=== PATIENT | female | born 1975 | race African-American/Black ===

== ENCOUNTER 2017-04-02 08:13 | Emergency (ER) | payer OTHER ==
[2017-04-02] MEDS ORDERED: SULFAMETHOXAZOLE/TRIMETHOPRIM 800-160 MG TABLET PO ONE (09:09)
--- NOTE | 2017-04-02 09:09 | ER Document Report ---
HPI - HPI Patient complains to provider of: red area anterior left thight Onset: Yesterday Onset/Duration: Gradual Pain Level: 1 Context: 42 yo non diabetic female with red area that lo, itches and hurts since yesterday morning. Worse today. No hx of MRSA. No fever. Associated Symptoms: None Exacerbated by: Denies Relieved by: Denies - ROS ROS below otherwise negative: Yes Systems Reviewed and Negative: Yes All other systems reviewed and negative - REPRODUCTIVE Reproductive: DENIES: : Past Medical History - General Information source: Patient - Social History Smoking Status: Current Every Day Smoker Chew tobacco use (# tins/day): No Frequency of alcohol use: None Drug Abuse: None Lives with: Family Family History: Malignancy Patient has suicidal ideation: No Patient has homicidal ideation: No - Past Medical History Cardiac Medical History: Reports: Hx Hypertension Pulmonary Medical History: Reports: Hx Asthma, Hx Pneumonia Neurological Medical History: Reports: Hx Migraine Renal/ Medical History: Reports: Hx Ectopic - Right. Denies: Hx Peritoneal Dialysis Malignancy Medical History: Reports: Hx Lymphoma - hodgkins lymphoma in remission since June 2015 Musculoskeltal Medical History: Reports Hx Musculoskeletal Deformity, Reports Hx Musculoskeletal Trauma Psychiatric Medical History: Reports: Hx Anxiety, Hx Depression Traumatic Medical History: Reports: Hx Fractures - right hand arm fingers, left lower leg Past Surgical History: Reports: Hx Section, Hx Gynecologic Surgery - ectopic with right tube and ovary removed, Hx Orthopedic Surgery - ganglion cyst removed right hand, Hx Umbilical Hernia, Hx Vascular Surgery - Port inserted and removed - Immunizations Immunizations up to date: Yes Hx Diphtheria, Pertussis, Tetanus Vaccination: Yes Vertical Provider Document - CONSTITUTIONAL Agree With Documented VS: Yes Exam Limitations: No Limitations General Appearance: No Apparent Distress - INFECTION CONTROL TRAVEL OUTSIDE OF THE [place] IN LAST 30 DAYS: No - HEENT HEENT: Normocephalic - NECK Neck: Supple - RESPIRATORY O2 Sat by Pulse Oximetry: 98 - MUSCULOSKELETAL/EXTREMETIES Musculoskeletal/Extremeties: ANA M BAGLEY - NEURO Level of Consciousness: Awake, Alert - DERM Integumentary: Abscess - questionable, 3.5 cm, pink area left anterior mid thigh , mild tender with possible fluctuant center. no lymphangitis Course - Re-evaluation Re-evalutation: 04/02/17 09:05 pt does not want I and D at this time, wants to try heat and antibiotics first. - Vital Signs Vital signs: Temp Pulse Resp BP Pulse Ox 98.4 F 85 16 129/89 H 98 04/02/17 08:17 04/02/17 08:17 04/02/17 08:17 04/02/17 08:17 04/02/17 08:17 Discharge - Discharge Clinical Impression: Abscess of left thigh Condition: Good Disposition: HOME, SELF-CARE Instructions: Abscess ([facility]), Elevation & Warmth ([facility]), Trimethoprim-Sulfa ([facility]) , Warm Packs ([facility]) Additional Instructions: ELEVATE LEG MOIST WARM COMPRESS TO ER IF WORSE Prescriptions: Sulfamethoxazole/Trimethoprim [Septra-Ds 800-160 mg Tablet] 1 tab PO BID #14 tablet Forms: Return to Work Referrals: CSOTT CARIAS MD [Primary Care Provider] - Follow up as needed
[2017-04-02 09:28] VITALS: BP 125/80
== END 2017-04-02 09:21 | disposition home or self-care (01) ==
LOC: ER 08:13
DX: L02.416 Cutaneous abscess of left lower limb (principal); F17.200 Nicotine dependence, unspecified, uncomplicated; Z85.72 Personal history of non-Hodgkin lymphomas
CPT/HCPCS: 99282